=== PATIENT | female | born 1965 | race African-American/Black ===

== ENCOUNTER 2023-06-18 12:12 | Emergency (ER) | payer OTHER ==
[~2023-06-18] VITALS: Ht 160 cm; Wt 81.6 kg
[2023-06-18] MEDS ORDERED: VAZALORE81 MG PO (13:23)
[2023-06-18] MEDS ORDERED: LIPITOR40 MG PO (13:23)
== END 2023-06-18 18:22 | disposition home or self-care (01) ==
LOC: ER 12:12
DX: S92.302A Fracture of unspecified metatarsal bone(s), left foot, initial encounter for closed fracture (principal); X58.XXXA Exposure to other specified factors, initial encounter; Y93.89 Activity, other specified; Y92.098 Other place in other non-institutional residence as the place of occurrence of the external cause; Y99.8 Other external cause status